=== PATIENT | female | born 1970 | race Caucasian/White ===

== ENCOUNTER 2017-09-08 13:35 | Emergency (ER) | payer BC, OTHER ==
[~2017-09-08] VITALS: Ht 165.1 cm; Wt 96.8 kg
[~2017-09-08 13:35] MED LIST: ASPEC325 PO; CYAN3INJ SC; ERGO1CAP35 PO; MAGN400T6 PO; MULT-506 PO
[2017-09-08 13:36] VITALS: TEMP 36.3; Ht 165.1 cm; Wt 96.8 kg
[2017-09-08] MEDS ORDERED: KETOROLAC TROMETHAMINE 60 MG/2 ML VIAL IM STA (13:52)
--- NOTE | 2017-09-08 14:05 | EMERGENCY ROOM VISIT NOTE ---
ED Visit Note First contact with patient: 13:43 CHIEF COMPLAINT: Fall, low back pain, left knee pain HISTORY OF PRESENT ILLNESS: This 47-year-old female patient presents to the emergency department ambulatory, complaining of pain in the left knee and left low back which began approximately 5 hours prior to arrival after a fall. The patient states this morning, she was walking out of her front door. She states her had placed 3 bags of wood pallets on the front stoop, and she does not see these bags. She states she fell down 3 steps, landing directly on her left kneecap. The patient states she also believes she twisted her back, as she is experiencing left lower back pain and tingling radiating down the posterior left leg. The patient states immediately after the incident occurred , she did take one half of a [place], and states it did not help. She has taken no other pain medication. The patient states she is able to walk, however walking significantly worsens her symptoms. The patient does have a history of left knee replacement which was performed by Dr. Galarza. She states she lives in [place], but prefers our hospital to the local hospital, despite her severe pain. The patient states she has able to flex and extend the left knee, however the significantly worsens her pain. She states the left knee has given out, but she has not fallen from this activity, she is able to catch herself. She states she feels like the knee is loose. She also complains of numbness in her entire left foot which began approximately 20 minutes after the fall. She states she can feel, however she does have a decreased sensation in the foot. The patient notes the pain as sharp and a 8/10. The patient denies any loss of control of their bowel or bladder functions. There has been no lower leg numbness with the exception of the foot, and no change in sensation, with the exception of the foot. No nausea or vomiting or abdominal pain. No chest pain or shortness of breath. The patient has not had prior back injuries. No dysuria or increased urinary frequency. REVIEW OF SYSTEMS: A 10 system review of systems was performed with positives and pertinent negatives listed in the history of present illness. All other systems were reviewed and are negative. ALLERGIES: Iodine MEDICATIONS: None PMH: Left knee replacement, quad tendon repair SOCIAL HISTORY: The patient lives in [place] with family. She denies drug, alcohol, tobacco use PHYSICAL EXAM: VITALS: Vitals are noted on the nurse's note and reviewed by myself. Vital signs stable. GENERAL: This is a 47-year-old white female, in no acute distress, nondiaphoretic, well-developed well-nourished. SKIN: The skin was without rashes, erythema, edema, or bruising. Capillary refill less than 2 seconds. NECK: Supple without nuchal rigidity. No cervical spine tenderness. No paraspinous muscle tenderness. HEART: Regular rate and rhythm without murmurs gallops or rubs. LUNGS: Clear to auscultation bilaterally without wheezes, rales or rhonchi. ABDOMEN: Positive bowel sounds x 4. Normal tympanic percussion. Soft, nontender, without masses or organomegaly. Winters sign negative. MUSCULOSKELETAL: No muscle atrophy, erythema, or edema noted of the back. There is no tenderness over the lumbar spinous processes. There is no tenderness over the paraspinous muscles bilaterally. There is no tenderness over the thoracic spine or paraspinous muscles. There are no muscle spasms present. There is tenderness over the sacrum/coccyx area and the left hip and pelvis. The patient is slow to move around with maximum tenderness with position changes. Negative straight leg raise test. There is edema of the anterior knee. The patella does subluxate on examination. The patient is having difficulty with full flexion of the knee. There is no obvious erythema, ecchymosis, or laxity in the joint. There is tenderness on the medial, lateral, anterior, superior, and posterior aspects of the knee. There is joint line tenderness on examination. NEURO: Patient was alert and oriented to person place and time. Normal sensation to light and sharp touch. Deep tendon reflexes 2+ in the lower extremities. Dorsalis pedis pulse 2+ bilaterally. Strength 5/5 and equal in the bilateral lower extremities. RADIOLOGY: L PELVIS/UNILATERAL HIP 2-3VIEWS CLINICAL HISTORY: left hip/pelvis pain s/p fall COMPARISON: CT of the abdomen and pelvis October 16, 2008. FINDINGS: The sacroiliac joints and symphysis pubis are intact. There is no acute fracture within the pelvis or hips. There are pelvic surgical clips. A 1.3 cm bone island within the right femoral neck is unchanged since CT of October 16, 2008. IMPRESSION: No acute fracture within the pelvis or hips. Electronically signed by: Mike Dean M.D. 09/08/2017 2:45 PM Dictated Date/Time: 09/08/2017 2:44 PM L KNEE 3 VIEWS CLINICAL HISTORY: left knee pain/swelling s/p fall COMPARISON STUDY: Left knee 07/23/2014. FINDINGS: There is a left total knee arthroplasty. The hardware is intact. No fracture or dislocation. No significant periprosthetic lucency. Irregularity at the distal quadriceps tendon with inferomedial patellar subluxation. No significant joint effusion. IMPRESSION: 1. No fracture or dislocation within the left knee. 2. Irregularity at the distal quadriceps tendon with inferomedial subluxation of the patella in relation to the femur. This is concerning for quadriceps tendon injury versus patellar subluxation. Electronically signed by: Leighton Kinney M.D. 09/08/2017 2:47 PM Dictated Date/Time: 09/08/2017 2:44 PM SACRUM COCCYX MIN 2 VIEWS CLINICAL HISTORY: low back pain s/p fall COMPARISON STUDY: No previous studies for comparison. FINDINGS: There is no evidence of SI joint diastases. No sacral or coccygeal fractures are visualized. There are multiple surgical clips present within the pelvis. IMPRESSION: No fractures identified. Electronically signed by: Scott Rodríguez M.D. 09/08/2017 2:45 PM Dictated Date/Time: 09/08/2017 2:44 PM EMERGENCY DEPARTMENT COURSE: The patient was seen and evaluated as above. She presents today approximately 5 hours s/p fall down 3 steps on her front stoop. The patient does have a history of left knee replacement and quadriceps tendon repair in 2013, the tendon repair was performed in August, one month after the replacement. The patient is able to ambulate, however, this is extremely difficult. She was given 60mg Toradol for her pain initially. Upon re- evaluation and to discuss the patient's radiology readings, she was sleeping on the litter in the room. I awakened the patient to discuss her results, and she requests more pain medication, as the Toradol did not help much. The patient was given Percocet at this time. Based on the abnormal reading of the knee x-ray, I did consult with the radiologist to discuss whether this may be chronic or acute. He states without post-op images from after the patient's quadriceps tendon repair, he is unable to tell whether the injury may be acute or chronic. I did contact [facility] surgeon air pollution auditor, Dr. Harkins regarding the finding. I asked if he would be able to compare our x-ray to the patient's post- op x-ray and he states he would, but not at the moment where he was at. He recommended a knee immobilizer and crutches, and have the patient follow-up in the office this week. He suspected the patient may be able to be seen on Wednesday. I discussed all of these conversations with the patient at bedside. I encouraged her to call [facility] today to schedule an appointment. She was calling from her ER room. I advised her to contact me for any further questions. I did offer the patient a knee immobilizer and crutches, but she states she has these tools at home and will use them when she gets home. I encouraged her to put them on immediately and avoid ALL weight-bearing until cleared by orthopedics. The patient verbalizes understanding. Discharge instructions reviewed, and the patient was discharged home in good condition. I attest that I have personally reviewed the patient's current medication list. Patient was found to have normal blood pressure on screening and does not require follow-up. I did consult with PDMP prior to prescribing opiate pain medication. There were several relatively recent prescriptions for various narcotics from various providers. The patient states she has had many painful conditions, and increased pain in the left knee over the past few weeks, which is what the scripts were for. I did provide her with 2 days of Percocet, as she should be able to see [facility] by Wednesday, but advised the patient that we are unable to chronically provide pain medication. DIFFERENTIAL DIAGNOSIS: contusion, pelvic fracture, sacrum/coccyx fracture, knee contusion, knee fracture, ligament tear or strain, tendon tear of strain, meniscus tear, and others DIAGNOSIS: Fall down stairs, contusion of low back and hip, left knee pain, possible quadriceps tendon injury Problem List Medical Problems: (1) Autoimmune disorder Status: Chronic (2) Knee pain Status: Resolved (3) Knee pain Status: Resolved (4) Left Knee Avascular Necrosis Status: Resolved (5) Left knee injury Status: Resolved Surgical Problems: (1) H/O section Status: Resolved (2) H/O: hysterectomy Status: Resolved Current/Historical Medications Scheduled PRN Oxycodone/Acetaminophen 5MG/325MG (Percocet 5MG/325MG), 1 TAB PO Q4-6H PRN for Pain Allergies Coded Allergies: Iodine (Verified Allergy, Severe, anaphylaxis, 09/19/14) SHELLFISH (Verified Allergy, Severe, anaphylaxis, 09/19/14) Vital Signs Date Time Temp Pulse Resp B/P (MAP) Pulse Ox O2 Delivery O2 Flow Rate FiO2 09/08/17 15:15 91 18 128/81 97 Room Air 09/08/17 13:36 36.3 98 18 122/74 96 Room Air Medications Administered Medications (Trade) Dose Ordered Sig/Veronica Route Start Time Stop Time Status Last Admin Dose Admin Ketorolac Tromethamine (Toradol Inj) 60 mg NOW STAT IM 09/08/17 13:52 09/08/17 13:55 DC 09/08/17 14:07 60 MG Oxycodone/ Acetaminophen (Percocet 5-325mg Tab) 1 tab NOW STAT PO 09/08/17 15:03 09/08/17 15:04 DC 09/08/17 15:15 1 TAB Departure Information Impression Primary Impression: Knee pain Additional Impressions: Patellar subluxation Contusion of lower back and pelvis, initial encounter Fall down stairs Dispostion Home / Self-Care Condition GOOD Prescriptions Oxycodone/Acetaminophen 5MG/325MG (PERCOCET 5MG/325MG) Tab 1 TAB PO Q4-6H Y for Pain, #10 TAB For Initial Treatment Prov: Cary Hummel PA-C 09/08/17 Referrals No Doctor, Assigned (PCP) Boo Galarza M.D. Sensiba, Paul R., M.D. Patient Instructions ED Immobilizer Knee, My [facility] Additional Instructions ORTHOPEDIC INSTRUCTIONS: DO NOT drive, drink alcohol, operate machinery, or perform dangerous activities today. You were given medications in the ER that can affect your ability to safely function or operate a vehicle. Percocet 5/325mg: Take 1 pill every four to six hours as needed for breakthrough pain. Avoid alcohol, operating machinery or dangerous equipment, working on ladders or roofs, DRIVING, or situations where being under the influence may be dangerous. It is recommended to use an pxbp-hoe-pwdotke stool softener such as Colace, 100mg twice daily while taking this medication to avoid constipation. Ibuprofen(Motrin, Advil) may be used for fever or pain. Use 600mg every six hours as needed. Take with food. Avoid using more than 2400mg in a 24 hour period. Do not use 2400mg per day for more than three consecutive days without physician direction. Prolonged inappropriate use can lead to stomach upset or ulcers. (AND/OR) Acetaminophen(Tylenol) may be used for fever or pain. Use 500-1000mg every six hours as needed. Avoid using more than 3000mg in a 24 hour period (note there is acetaminophen in the Percocet you were prescribed). *Alternate these medications every 3-4 hours for increased pain relief. Ice compresses for 20 minutes at a time four times daily for 2-3 days. Use the crutches you have at home as instructed to avoid weight bearing until cleared by orthopedics. Use the knee immobilizer you have at home until cleared by orthopedics. Rest and elevate your injury. Return to the ER immediately for any numbness, tingling, severe pain, extreme swelling in the extremity or as needed. Call [facility], , today to arrange follow up for your injury. As discussed, Dr. Harkins did recommend you are seen this week in the office. Follow-up with your primary care physician in 2 to 3 days for a recheck of your current condition or if you continue to require pain medication. Problem Qualifiers Primary Impression: Knee pain Chronicity: acute Laterality: left Qualified Codes: M25.562 - Pain in left knee Additional Impressions: Patellar subluxation Encounter type: initial encounter Laterality: left Qualified Codes: S83.002A - Unspecified subluxation of left patella, initial encounter Fall down stairs Encounter type: initial encounter Qualified Codes: W10.8XXA - Fall (on) ( from) other stairs and steps, initial encounter
--- NOTE | 2017-09-08 14:46 | DIAGNOSTIC IMAGING REPORT ---
L PELVIS/UNILATERAL HIP 2-3VIEWS CLINICAL HISTORY: left hip/pelvis pain s/p fall COMPARISON: CT of the abdomen and pelvis October 16, 2008. FINDINGS: The sacroiliac joints and symphysis pubis are intact. There is no acute fracture within the pelvis or hips. There are pelvic surgical clips. A 1.3 cm bone island within the right femoral neck is unchanged since CT of October 16, 2008. IMPRESSION: No acute fracture within the pelvis or hips. Electronically signed by: Mike Dean M.D. 09/08/2017 2:45 PM Dictated Date/Time: 09/08/2017 2:44 PM
--- NOTE | 2017-09-08 14:46 | DIAGNOSTIC IMAGING REPORT ---
SACRUM COCCYX MIN 2 VIEWS CLINICAL HISTORY: low back pain s/p fall COMPARISON STUDY: No previous studies for comparison. FINDINGS: There is no evidence of SI joint diastases. No sacral or coccygeal fractures are visualized. There are multiple surgical clips present within the pelvis. IMPRESSION: No fractures identified. Electronically signed by: Scott Rodríguez M.D. 09/08/2017 2:45 PM Dictated Date/Time: 09/08/2017 2:44 PM
--- NOTE | 2017-09-08 14:48 | DIAGNOSTIC IMAGING REPORT ---
L KNEE 3 VIEWS CLINICAL HISTORY: left knee pain/swelling s/p fall COMPARISON STUDY: Left knee 07/23/2014. FINDINGS: There is a left total knee arthroplasty. The hardware is intact. No fracture or dislocation. No significant periprosthetic lucency. Irregularity at the distal quadriceps tendon with inferomedial patellar subluxation. No significant joint effusion. IMPRESSION: 1. No fracture or dislocation within the left knee. 2. Irregularity at the distal quadriceps tendon with inferomedial subluxation of the patella in relation to the femur. This is concerning for quadriceps tendon injury versus patellar subluxation. Electronically signed by: Leighton Kinney M.D. 09/08/2017 2:47 PM Dictated Date/Time: 09/08/2017 2:44 PM
[2017-09-08] MEDS ORDERED: OXYCODONE/ACETAMINOPHEN 5-325 TAB PO STA (15:03)
[2017-09-08 15:15] VITALS: BP 128/81; PULSE 91; O2SAT 97
[2017-09-08] MEDS ORDERED: OXYC-57 PO (15:15)
== END 2017-09-08 15:38 | disposition home or self-care (01) ==
LOC: C.EDB 13:36 → C.EDD 15:38
DX: M25.562 Pain in left knee (principal); S83.002A Unspecified subluxation of left patella, initial encounter; S30.0XXA Contusion of lower back and pelvis, initial encounter; W10.8XXA Fall (on) (from) other stairs and steps, initial encounter; Y92.018 Other place in single-family (private) house as the place of occurrence of the external cause; D89.89 Other specified disorders involving the immune mechanism, not elsewhere classified; Z96.652 Presence of left artificial knee joint